=== PATIENT | male | born 1955 ===

== ENCOUNTER 2020-03-05 05:45 | Day surgery (SDC) | payer BC ==
[~2020-03-05 05:45] MED LIST: CAMBIA50 MG; CHILDREN'S ASPI81 MG PO; CRESTOR20 MG PO; LOSARTAN-HCTZ1 EACH PO; ULTRAM50 MG PO
== END 2020-03-05 12:50 | disposition home or self-care (01) ==
LOC: CIR.AMB 05:45
PROVIDERS: ATTEND Orthopaedic Surgery
DX: M75.121 Complete rotator cuff tear or rupture of right shoulder, not specified as traumatic (principal); Z20.828 Contact with and (suspected) exposure to other viral communicable diseases